=== PATIENT | female | born 1940 | race Caucasian/White ===

== ENCOUNTER → 2018-09-27 | Outpatient (CLI) | payer OTHER ==
[~2018-09-27] VITALS: Ht 160 cm; Wt 70.3 kg
[~2018-09-27] MED LIST: AMBIEN 5 MG TABL5 M1 PO; AMLODIPINE BESY10 MG PO; AUGMENTIN 875875 MG PO; BENTYL 10 MG CA10 MG PO; FLAGYL500 MG; HYDROCHLOROTH12.5 MG PO; HYDROCHLOROTHIA25 M2 PO; HYDROCODONE-APA1 TA1 PO; MAGOX 400400 MG PO; MUCINEX TA600 MG/TA2 PO; MULTI-DAY PLUS1 EAC1 PO; NORVASC5 MG PO; PROBIOTIC COMP1 EACH PO; PROTONIX40 M2; TESSALON PERLE100 MG PO; VANCOCIN 250 M250 M1; ZOLPIDEM TARTRA10 MG PO
[2018-09-27 10:51] VITALS: BP 141/66
--- NOTE | 2018-09-27 13:32 | NUR ---
PT RETURNED FROM IR PROCEDURE KYPHOPLASTY. PT AWAKE AND ALERT,. NSR ON MONITOR VSS, NO C/O EXCEPT DRY MOUTH. SIPPING ON WATER, SIGNIFICANT OTHER AT BEDSIDE. NS INFUSING TKO. NO PAIN. BANDAID TO BACK CLEAN DRY INTACT
== END | disposition home or self-care (01) ==
LOC: SPEC 08:57
DX: M80.08XA Age-related osteoporosis with current pathological fracture, vertebra(e), initial encounter for fracture (principal); M54.9 Dorsalgia, unspecified; I10 Essential (primary) hypertension; E11.9 Type 2 diabetes mellitus without complications; Z85.3 Personal history of malignant neoplasm of breast; Z82.49 Family history of ischemic heart disease and other diseases of the circulatory system; Z98.890 Other specified postprocedural states; Z88.2 Allergy status to sulfonamides; Z88.8 Allergy status to other drugs, medicaments and biological substances; Z79.899 Other long term (current) drug therapy; Z87.01 Personal history of pneumonia (recurrent)